=== PATIENT | male | born 1965 | race Caucasian/White ===

== ENCOUNTER 2017-04-18 22:34 | Emergency (ER) | payer SELFPAY ==
[2017-04-18 22:44] VITALS: O2SAT 96
--- NOTE | 2017-04-18 23:50 | EDPHY ---
H & P Time Seen by Provider: 04/18/17 22:52 HPI/ROS: CHIEF COMPLAINT: Left great toe injury HISTORY OF PRESENT ILLNESS: 51-year-old male presents to the emergency department by private vehicle with injury to his left great toe. The patient was wearing sandals just prior to arrival and stubbed his left great toe on the curb. The incident happened just prior to arrival. He states that the wound bled quite a bit. He believes his tetanus shot is current. ROS: Denies numbness or tingling in his toes, retained foreign body or other injury. Past Medical/Surgical History: Negative Social History: Visiting from the [facility] Smoking Status: Never smoked Physical Exam: On examination the patient has onychomycosis noted to the left great toenail. He has some bleeding noted just under the left great toenail near the edge of the nail. There is some small bleeding noted to the very tip of the nail. Very small superficial laceration noted. The base of his toenail is intact. No palpable bony tenderness. The other toes do not appear injured. He has no pain with palpation to the toenail itself. The toenail does appear intact. Constitutional: Initial Vital Signs Temperature (C) 36.9 C 04/18/17 22:41 Heart Rate 69 04/18/17 22:41 Respiratory Rate 18 04/18/17 22:41 Blood Pressure 117/75 04/18/17 22:41 O2 Sat (%) 96 04/18/17 22:41 O2 Delivery Mode Room Air Allergies/Adverse Reactions: amoxicillin Allergy (Verified 04/18/17 22:44) Home Medications: Medication Instructions Recorded NK [No Known Home Meds] 04/18/17 MDM/Departure - [facility] ED Course/Re-evaluation: 51-year-old male presents to the emergency department with left great toe injury. Patient declined digital block. His toe was thoroughly cleansed and soaked in some warm water. He had a very small superficial laceration to the very distal aspect of the toe. Antibiotic ointment and dressing applied. No sutures were needed. I do not think electrocautery is necessary. The patient tolerated cleansing quite well. - Depart Disposition: Home, Routine, Self-Care Clinical Impression: Onychomycosis, Superficial laceration left great toe Condition: Good Instructions: Acute Wounds (ED) Additional Instructions: Return if you notice any signs or symptoms of infection such as redness, swelling, increased pain, fever, purulent drainage. Avoid any open water until the wound has completely healed. Referrals: Ja Harry MD [Doctor of Podiatric Medicine] - 2-3 days, if not improved ([employer] refrig[employer] engineer)
[2017-04-19] VITALS: BP 107/72; PULSE 66; RESP 14; TEMP 98.1
== END 2017-04-18 23:59 | disposition home or self-care (01) ==
DX: S91.112A Laceration without foreign body of left great toe without damage to nail, initial encounter (principal); B35.1 Tinea unguium; W45.8XXA Other foreign body or object entering through skin, initial encounter